=== PATIENT | male | born 1985 | race Caucasian/White ===

== ENCOUNTER 2021-06-20 10:58 | Emergency (ER) | payer BC ==
[2021-06-20 11:52] LABS: HEMOGLOBIN 15.3 gm/dl (14.0-17.5); RED BLOOD COUNT 4.65 M/UL (4.20-5.50)
[2021-06-20 12:11] LABS: BUN/CREATININE RATIO 10 (0-10)
[2021-06-20] MEDS ORDERED: CEPHALEXIN500 M1 PO (13:24)
[2021-06-20] MEDS ORDERED: BACTRIM DS TAB1 EACH PO (13:24)
== END 2021-06-20 13:34 | disposition home or self-care (01) ==
LOC: ER1 10:58
PROVIDERS: Physician Assistant
DX: L03.115 Cellulitis of right lower limb (principal); I10 Essential (primary) hypertension
CPT/HCPCS: 80053; 85025; 93971; 99284